=== PATIENT | male | born 1975 | race Caucasian/White ===

== ENCOUNTER 2020-06-22 09:25 | Emergency (ER) | payer OTHER ==
[~2020-06-22] VITALS: Ht 175.3 cm; Wt 145.2 kg
[~2020-06-22 09:25] MED LIST: ACETAMINOPHEN-1 EAC1 PO; CLEOCIN HCL150 MG PO; HYDROCODON-ACE1 EAC7 PO; HYDROCODONE-AP1 EAC6 PO; IBUPROFEN 800800 MG PO; KEFLEX500 MG PO; LIDOCAINE VISC100 M1 SWISH&SPIT; NOHOMEMEDICATIONS; PROAIR HFA8.5 GM INH; TESSALON PERLE100 MG PO; ZOFRAN ODT4 MG PO; ZPAK PO
[2020-06-22] MEDS ORDERED: WELLBUTRIN SR150 MG PO (09:29)
[2020-06-22 09:51] LABS: ABSOLUTE EOSINOPHILS 0.1 thou/uL (0.0-0.7); ABSOLUTE LYMPHOCYTES 1.2 thou/uL (0.8-5.3); ABSOLUTE MONOCYTES 0.5 thou/uL (0.0-1.2); BASOPHILS 0.6 %; EOSINOPHILS 1.8 %; HEMATOCRIT 45.4 % (42.0-52.0); HEMOGLOBIN 15.1 gm/dL (14.0-18.0); LYMPHOCYTES 21.1 %; MCH 29.1 pg (26.0-34.0); MCHC 33.3 g/dL (28.0-37.0); MCV 87.4 fL (80.0-100.0); MONOCYTES 8.1 %; MPV 8.1 fl. (7.2-11.1); NUCLEATED RBCS 0 /100WBC; PLATELET COUNT* 275 thou/uL (150-400); POLYS 68.4 %; RDW-CV 13.4 % (10.5-14.5); WBC 5.9 thou/uL (4.0-11.0)
[2020-06-22 09:59] LABS: CALCIUM 8.9 mg/dL (8.5-10.1); CREATININE 0.8 mg/dL (0.6-1.3); POTASSIUM 3.9 mmol/L (3.5-5.1)
[2020-06-22 10:04] LABS: ALBUMIN 3.6 g/dL (3.4-5.0); TOTAL BILIRUBIN 0.4 mg/dL (<0.1-1.0)
[2020-06-22] MEDS ORDERED: CYCLOBENZAPRINE5 MG PO (12:40)
[2020-06-22] MEDS ORDERED: NORCO5 PO (12:40)
[2020-06-22 13:00] VITALS: BP 109/68
--- NOTE | 2020-06-22 14:53 | EKG ---
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1975 Requested By: Cielo Joaquin Order Number: [id number] MD: Bertin Hoff Measurements Intervals [place] Rate: 83 P: 21 NM: 139 QRS: 8 QRSD: 94 T: 16 QT: 356 QTc: 419 Interpretive Statements Sinus rhythm RSR' in V1 or V2, right VCD or RVH Left ventricular hypertrophy Baseline wander in lead(s) V2 No previous ECG available for comparison Electronically Signed On 06-22-2020 14:52:48 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
--- NOTE | 2020-06-22 14:54 | EKG ---
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1975 Requested By: Guerrero Marlow Order Number: [id number] MD: Bertin Hoff Measurements Intervals [place] Rate: 66 P: -7 CO: 134 QRS: 2 QRSD: 102 T: 4 QT: 376 QTc: 394 Interpretive Statements Sinus rhythm RSR' in V1 or V2, right VCD or RVH Left ventricular hypertrophy Borderline T abnormalities, inferior leads Compared to ECG 06/22/2020 09:32:03 no change Electronically Signed On 06-22-2020 14:54:49 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
== END 2020-06-22 13:01 | disposition home or self-care (01) ==
LOC: M.ERS 09:25
PROVIDERS: Physician Assistant
DX: R07.9 Chest pain, unspecified (principal); M54.6 Pain in thoracic spine; Z20.822 Contact with and (suspected) exposure to COVID-19